=== PATIENT | female | born 1990 | race Two or more races ===

== ENCOUNTER 2020-08-05 09:56 | Emergency (ER) | payer MEDICAID, OTHER ==
[~2020-08-05] VITALS: Ht 157.5 cm; Wt 61.2 kg
[2020-08-05 10:57] VITALS: BP 151/82
== END 2020-08-05 12:15 | disposition home or self-care (01) ==
LOC: ER 09:56
DX: R51.9 Headache, unspecified (principal); F17.210 Nicotine dependence, cigarettes, uncomplicated
CPT/HCPCS: 70450